=== PATIENT | female | born 1985 | race Caucasian/White ===

== ENCOUNTER 2023-04-18 19:25 | Emergency (ER) | payer BC, SELFPAY ==
[2023-04-18 19:41] VITALS: BP 149/92; PULSE 59; RESP 18; TEMP 36.1; O2SAT 96; BMI 42.9
--- NOTE | 2023-04-18 19:45 | ED_ITS ---
HPI - General Adult General Chief complaint: Wound/Laceration Stated complaint: left foot laceration Time Seen by Provider: 04/18/23 20:07 Source: patient Mode of arrival: ambulatory Limitations: no limitations History of Present Illness HPI narrative: Patient is a 37 year old female with no significant past medical history who presents with a laceration on the ball of her left foot after cutting it on a tile in her bathroom. She reports that this occurred about an hour ago. She reports that she is up to date on her tetanus vaccine and is not on any bloodthinners at home. She denies numbness, tingling, radiation of pain, chest pain, shortness of breath, fevers, chills, FB sensation to foot. Related Data Allergies Allergy/AdvReac Type Severity Reaction Status Date / Time mupirocin [From Bactroban] Allergy Rash Verified 04/18/23 19:41 Review of Systems Review of Systems: Constitutional : No Weight loss, No Fever, No Chills, No Fatigue, No Malaise Cardiovascular : No Chest Pain, No SOB, No Dyspnea on Exertion, No Orthopnea, No Edema, No Palpitations Respiratory : No Cough, No Sputum, No Wheezing Gastrointestinal : No Nausea, No Vomiting, No Diarrhea, No Constipation, No abdominal Pain, No Hematochezia, No Melena Genitourinary : No Dysuria, No Urinary Frequency, No Hematuria, Musculoskeletal : No joint pain, No Myalgias, No Joint Swelling Skin : + laceration to ball of left foot. No rash Neuro : No Weakness, No Numbness, No Dizziness, No Headache Psych : No Anxiety/Panic, No Depression Heme/Lymph: No Bruising, + Bleeding from laceration,No Lymphadenopathy All other systems reviewed and are negative Yes all other systems are reviewed and are negative [facility], [facility] Past Medical History Attestation statement: The following information was validated with the patient. Source: old records reviewed and nursing notes reviewed Social History Social History Advance Directives: No Advance Directives Information Provided: Yes Physical Exam ED Vital Signs: Vital Signs - 24 hr 04/18/23 19:41 Temperature 96.9 F Pulse Rate 59 Respiratory Rate 18 Blood Pressure 149/92 H Pulse Oximetry 96 Oxygen Delivery Method Room Air BMI result Body Mass Index 42.9 vss Appearance: Alert.? Oriented X3.? No acute distress.? Head: Normocephalic, atraumatic, no step-offs or deformities Eyes: Pupils equal, round and reactive to light.?.? CVS: Normal heart rate and rhythm.? Pulses normal.? Respiratory: No respiratory distress.? Breath sounds normal.? Abdomen: Soft and nontender.? Skin: Skin warm and dry.? Normal skin color.? Normal skin turgor.? Extremities: + Positive for 2.5 cm linear simple laceration to ball of left foot near great toe. No lower extremity edema.? No calf ttp. 5/5 strength to bilateral upper and lower extremities Neuro: Oriented X 3.? No motor deficit.? No sensory deficit. CN 2-12 intact Course Course Course Narrative: Patient sustained a laceration to the medial aspect of the left foot on a bathroom tile. Bleeding controlled in triage. Will likely require closure Reevaluation(s) Reevaluation #1: Wound assessed and cleansed with saline and soaked in betadine. Glue used to close laceration and 3 steri-strips placed. Patient tolerated procedure well. Educated patient on diagnosis and treatment plan, answered all question, patient verbalizes understanding. At this time patient will be discharged home, advised to return with new or worsening symptoms. Educated on worrisome signs and symptoms and when to return. At this time I feel comfortable discharge home. Time: 20:49 Medical Decision Making Medical Decision Making MDM Narrative: Patient is a 37 year old female presenting for laceration to the ball of her left foot after cutting it on a tile in her bathroom. Physical exam significant for linear laceration to ball of left foot. Differential diagnosis includes superficial foot laceration. Unlikely neurovascular compromise, foreign bodies, threat to limb. Unlikely fracture dislocation Plan glue and steri-strips. Differential Diagnosis Differential Diagnoses: The differential diagnosis associated with the presentation includes Differential diagnosis includes superficial foot laceration. Unlikely n eurovascular compromise, foreign bodies, threat to limb. Unlikely fracture dislocation Admission/Observation Consideration of admission/observation: Escalation of care including admission/observation considered Unlikely External Record Review External record reviewed: Inpatient record, Office record, Outpatient record, Prior outpatient labs, Prior outpatient radiology, Primary care record and Outside ED record Core Measures AMI core measures followed: Yes Measure exclusions: not indicated Discharge Plan Discharge Clinical Impression: Laceration Patient Disposition: Home, Self-Care Additional Instructions: Take your medications as prescribed. If you were prescribed antibiotics today, it is important that you take your medication to their entirety, do not skip any doses, do not finish them early. Follow-up with your primary care provider this week. Return to the emergency department with new or worsening symptoms. Such as fevers, chills, chest pain, shortness of breath, nausea, vomiting, dizziness, headache, vision changes, lethargy In case of emergency call 911 Referrals: Houston Ye III, MD [Primary Care Provider] - 2 days Stand Alone Forms: Work/School Release Interventions: ED Discharge Assessment Last Done: 04/18/23 20:43 Discharge Date/Time: 04/18/23 20:43
== END 2023-04-18 20:43 | disposition home or self-care (01) ==
PROVIDERS: Emergency Provider Student in an Organized Health Care Education/Training Program; PCP Internal Medicine
DX: S91.312A Laceration without foreign body, left foot, initial encounter (principal); W26.8XXA Contact with other sharp object(s), not elsewhere classified, initial encounter; Y93.89 Activity, other specified; Y92.031 Bathroom in apartment as the place of occurrence of the external cause; Y99.9 Unspecified external cause status
CPT/HCPCS: 12001; 99282

== ENCOUNTER 2025-03-06 09:03 | Outpatient (REF) | payer BC, SELFPAY ==
--- NOTE | ~2025-03-06 | XR_ITS ---
EXAMINATION: XR KNEE, LEFT CLINICAL INFORMATION: M25.569 - Pain in unspecified knee COMPARISON: None available. TECHNIQUE: AP view bilateral knees standing, lateral and patellofemoral views left knee. FINDINGS: RIGHT KNEE: No fracture, or malalignment. No bone lesion. Preserved joint spaces. Normal soft tissues. LEFT KNEE: Lucency through the inferior pole of the left patella, highly suspicious for fracture. This is only seen on the lateral projection. No additional fracture, dislocation, or suspicious bone lesion. Joint spaces are preserved. Normal knee and patellar alignment. There is prepatellar soft tissue swelling. XR/XR knee LT 3V IMPRESSION: 1. Suspect nondisplaced fracture inferior pole left patella. Electronically signed by: Roger Garzon MD 03/09/2025 02:20 PM EDT
--- OUTSIDE RECORDS SUMMARY | 2025-03-06 09:14 | XMS_ITS | Clinical Summary ---
Author Organization [facility] [address] [place] [address] [place] [id number] Phone Care Team Providers Care Certified Master Safe Technician Name Role Phone Houston Ye MD Primary Care Provider [phone] Allergies Active Allergy Reactions Criticality Noted Date Comments Mupirocin Calcium Itching 05/10/2008 Medications copper (PARAGARD) 380 square mm IUD 1 Device by Intrauterine route Once. 2 Active fluocinonide (LIDEX) 0.05 % ointment Apply to are bid 1 Active hydrocortisone 2.5 % cream Apply sparingly twice a day as needed to affected areas on sensitive skin 1 Active Active Problems Problem Noted Date Diagnosed Date Gestational hypertension 11/07/2021 Severe obesity (BMI 35.0-39. 9) with comorbidity ([facility] V24, [facility] V28) 06/28/2019 Heavy menses due to IUD ([facility] V24) 11/21/2012 Asthma, exercise induced 03/08/2010 Eczema 03/08/2010 ADHD (attention deficit hyperactivity disorder) 11/10/2009 Overview (10/24/2024): Diagnosed june 2009 Immunizations Name Administration Dates Next Due DTP 02/24/1987, 6,01/24/1986,1984 [id number] (Pentacel) 2mo to less than 5yo 09/26/1987 HPV, Quadrivalent 11/20/2012,07/25/2012,05/28/20 12 Hepatitis B Pediatric (Enger ix B; Recombivax HB) to less than 20 yo 10/27/1997,06/08/1997,05/07/1997 Influenza Quadravalent, MDCK , 0.5ml, preservative free (Flucelvax) 6mo and older 09/22/2022 Influenza trivalent, 0.5mL, preservative free (Fluarix; FluLaval; Fluzone) ages 6mo and older (Afluria) 3 years and older 08/12/2021,08/05/2020,09/13/2019 Influenza, Unspecified 07/28/2023,08/29/2022 MMR, measles mumps and rubel la Live (Priorix; M-M-R II) 12mo and older 10/27/1997,12/27/1986 Moderna (age 6mo & older) Bi valent, COVID-19, 0.5 mL or 0.25 mL dosage 09/22/2022 OPV 02/24/1987, 6,01/24/1986,1984 PPD Test 07/07/2005 Skills[employer]k SARS-CoV-2 COVID-19, mRNA, LNP-S, preservative free 03/05/2021 SARS-COV-2 (COVID-19) Vaccin e, Unspecified 08/17/2023 Td Tetanus diptheria (Tdvax) 7yo and older 04/14/1999,07/27/1992 Tdap Tetanus diptheria acell ular pertussis (Boostrix; Adacel) 7yo and older 08/24/2021,07/29/2021,05/28/2012,1998,07/27/1992 Surgical History Surgery Date Site/Laterality Comments EYE SURGERY 1989 PROCEDURE: HISTORICAL EYE SURGERY; COMMENT: cross-eyed correction WISDOM TOOTH EXTRACTION PROCEDURE: HISTORICAL WISDOM TEETH EXTRACTION Medical History Medical History Date Comments Anxiety disorder in conditio ns classified elsewhere DX:Anxiety disorder in condi tions classified elsewhere Asthma, exercise induced 03/08/2010 DX:Asth ma, exercise induced Eczema 03/08/2010 DX:Eczema IUD (intrauterine device) in place 11/27/2011 DX:IUD (intrauterine device) in place; COMMENT: ParaGard Gestational hypertension 11/07/2021 DX:Gest ational hypertension Family History Medical History Relation Name Comments Stomach cancer Aunt 1 maternal type I diabet es Breast cancer Aunt 2 paternal unilateral Diabetes Brother x 1 type I Hypertension Father Stroke Maternal Grandfather Hypertension Maternal Grandmother Hypertension Mother vertigo, GI ulc ers Hypertension Paternal Grandfather catarac ts Diabetes Sister x 1 Relation Name Status Comments Aunt 1 maternal Aunt 2 paternal Alive Brother x 1 Alive Father Alive Maternal Grandfather Maternal Grandmother Alive Mother Alive Paternal Grandfather Alive Paternal Grandmother Alive Sister x 1 Alive Social History Tobacco Use Types Packs/Day Years Used Date Smoking Tobacco: Former Cigarettes Q uit: 01/13/2015 Smokeless Tobacco: Never Tobacco Cessation:Counseling Given: Not Answered Alcohol Use Standard Drinks/Week Comments Yes 0 (1 standard drink = 0.6 oz pur e alcohol) Housing Instability Answer Date Recorde d Are you worried that in the next 2 months you may not have stable housing? No 02/13/2025 Food Access & Nutrition Answer Date Rec orded Do you have access to a vari ety of food including fruits and vegetables? Yes 02/13/2025 Access to Healthcare Answer Date Record ed Within the last 3 months, ho w many times did you visit the emergency department for your medical care? 0 02/13/2025 Health Literacy Answer Date Recorded How often do you need to hav e someone help you when you read instructions, pamphlets, or other written material from your doctor or pharmacy? Never 02/13/2025 Caregiver: How often do you need to have someone help you when you read instructions, pamphlets, or other written material from your doctor or pharmacy? Not on file 02/13/2025 Financial Risk Answer Date Recorded How hard is it for you to pa y for the very basics like food, housing, medical care, and air conditioning / heating? Not very hard 02/13/2025 Transportation Answer Date Recorded Has the lack of transportati on kept you from meetings, work, or from getting things needed for daily living? No Has the lack of transportati on kept you from medical appointments or from getting medications? No 02/13/2025 Social Isolation Answer Date Recorded How often do you feel lonely or isolated from th ose around you? Never 02/13/2025 Food Risk Answer Date Recorded Within the past 12 months we worried whether our food would run out before we got money to buy more. Never true 02/13/2025 Within the past 12 months th e food we bought just didn't last and we didn't have money to get more. Never true 02/13/2025 Dependent Care Answer Date Recorded Do you need help finding or paying for care for your loved ones. For example, early childhood associate teacher or elderly care for an older adult? No 02/13/2025 Education Answer Date Recorded Do you think completing more education or training, like finishing a GED, going to college, or learning a trade, would be helpful for you? N/A 02/13/2025 Employment and Income Answer Date Recor ded During the last four weeks, have you been actively looking for work? No 02/13/2025 Living Situation Answer Date Recorded What is your living situation? 0 02/13/2025 Comments Unknown Sex and Gender Information Value Date Recorded Sex Assigned at Not on file Legal Sex Female 8:50 AM EST Gender Identity Not on file Sexual Orientation Not on file Obstetrics History Last Filed Vital Signs Vital Sign Reading Time Taken Comments Blood Pressure 124/78 02/20/2025 9:02 AM EDT Pulse 64 02/20/2025 9:02 AM EDT Temperature 36.9 ??C (98.4 ??F) 02/20/2025 9:02 AM ED T Respiratory Rate - - Oxygen Saturation 98% 02/20/2025 9:02 AM EDT Inhaled Oxygen Concentration - - Weight 100 kg (220 lb 14.4 oz) 02/20/2025 9:02 A M EDT Height 162.6 cm (5' 4.02 ) 02/20/2025 9:02 AM ED T Body Mass Index 37.9 02/20/2025 9:02 AM EDT Plan of Treatment Upcoming Encounters Date Type Department Care Team (Late st Contact Info) Description 03/13/2025 11:30 AM EDT Office Visit Adult Medicine [address] [phone] Felicia Muse PA [address] [place] [id number] Health Maintenance Due Date Last Done Comments Pneumococcal Vaccine: Pediatrics (0 to 5 Years) and At-Risk Patients (6 to 64 Years) (1 of 2 - PCV) 2004 Hepatitis C Screening 10/15/2022 Hypertension/CHF/CAD Annual BMP Blood Test 03/04/2025 03/04/2024 Depression Screening 02/13/2026 02/13/2025 Social Influencers of Health Screening 02/13/2026 02/13/2025 Cervical Cancer Screening: Pap Smear 09/17/2026 09/17/2023 Cholesterol Screening (Lipid Panel) 03/04/2029 03/04/2024 DTaP,Tdap,and Td Vaccines (11 - Td or Tdap) 08/24/2031 08/24/2021, 07/29/2021, 05/28/2012, Additional history exists HIB Vaccines Completed 09/26/1987, 09/26/1987 IPV Vaccines Completed 09/26/1987, 02/10, 03/26/1986, Additional history exists Hepatitis B Vaccines Completed 10/27/1997, 06/08/1997, 05/07/1997 MMR Vaccines Completed 10/27/1997, 12/27/1986 HPV Vaccines Completed 11/20/2012, 07/13, 05/28/2012 HIV Screening Completed 11/25/2014 COVID-19 Vaccine Completed 08/15/2024, 04/2023, 09/22/2022, Additional history exists Influenza Vaccine Completed 08/15/2024, , 09/22/2022, Additional history exists Hepatitis A Vaccines Aged Out No long er eligible based on patient's age to complete this topic Meningococcal ACWY Vaccine Aged Out N o longer eligible based on patient's age to complete this topic Meningococcal B Vaccine Aged Out No l onger eligible based on patient's age to complete this topic RSV Immunization Patients Under 20 months Aged Out No longer eligible based on patient's age to complete this topic Varicella Vaccines Aged Out No longer eligible based on patient's age to complete this topic Procedures Procedure Name Priority Date/Time Associated Diagnosis Comments ANNUAL BMP BLOOD TEST Routine 03/04/2024 LIPID PANEL Routine 03/04/2024 HM PAP SMEAR Routine 09/17/2023 HIV SCREENING Routine 11/25/2014 from Last 3 Months or Most Recently Relevant to Health Maintenance Results * Annual BMP Blood Test (03/04/2024) Pathologist [facility] Annual BMP Blood Test abstracted [facility] Provider HEALTH MAINTENANCE Final Result * Lipid panel (03/04/2024) [facility] LDL/HDL Ratio 3 0 - 4 Triglycerides 58 0 - 150 mg/dL Cholesterol 155 0 - 200 mg/dL HDL 57 >=40 mg/dL LDL Cholesterol 87 0 - 100 mg/dL Blood Venous blood specimen / Unknown [facility] Provider LAB BLOOD ORDERABLES Radha l Result * Pap Smear (09/17/2023) Pathologist [facility] Pap smear no interpretation , abstracted [facility] Provider HEALTH MAINTENANCE Final Result * HIV Screening (11/25/2014) [facility] HIV Screening abstracted [facility] Provider HEALTH MAINTENANCE Final Result from Last 3 Months or Most Recently Relevant to Health Maintenance Insurance [facility] Care Teams Certified Master Safe Technician Relationship Specialty Start Date End Date Houston Ye MD [address] [place] [phone] PCP - General Internal Medicine 06/29/14
== END 2025-03-06 09:04 | disposition home or self-care (01) ==
LOC: HO.HOSX 09:03
PROVIDERS: Visit Provider Physician Assistant
DX: M25.562 Pain in left knee (principal)
CPT/HCPCS: 73562

== ENCOUNTER 2025-03-06 10:34 | Outpatient (AMB) | payer BC, SELFPAY ==
--- NOTE | 2025-03-06 10:41 | A.OFFVIS_ITS ---
Vital Signs 03/06/25 10:50 Height 5 ft 4 in Weight 215 lb BMI 36.9 Handedness Right Intake Visit Reasons: FC-Left inferior knee FX-LAC. Intake Note: Yvette is a 39 year old female who presents today with a knee immobilizer and crutches for a evaluation of her left knee injury, DOI 02/24/25. Patient reports she was walking on her lunch while she was at work and she had a fall and she is unsure if she was feeling dizzy at the moment. She states that her pain is through out the whole knee. She mentions that she has muscle tightness in her l eg. Patient has tried Motrin and Tylenol with relief. Allergies mupirocin [From Bactroban] Allergy (Verified 03/06/25 10:43) Rash HPI HPI FC-Left inferior knee FX-LAC.: Details: Ms. Olvera is a 39-year-old female who presents to the office today for evaluation of a left knee injury that she sustained on 02-24-25. She reports that she was on her lunch break walking with coworkers when all of a sudden she fell. She is unsure what caused the fall however after she had extreme left knee pain. [facility] and she was found to have a patellar fracture. She was placed in a knee immobilizer instructed to non weightbear until her appointment with orthopedics. 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 Tenderness to palpation of the distal pole of the patella. No tenderness to palpation medial or lateral joint lines. NVI. Office Procedures AMB Fracture Care Fracture Billing Code: Fracture Billing Code Assessment & Plan Assessment & Plan (1) Closed fracture of left patella: Code(s): S82.002A - Unspecified fracture of left patella, initial encounter for closed fracture Category: Medical Plan Ms. Olvera is a 39-year-old female who presents to the office today for evaluation of a left knee injury that she sustained on 02-24-25. She reports that she was on her lunch break walking with coworkers when all of a sudden she fell. She is unsure what caused the fall however after she had extreme left knee pain. [facility] were obtained and she was found to have a patellar fracture. She was placed in a knee immobilizer instructed to non weightbear until her appointment with orthopedics. On the office today, the patient was fit for an ACL brace off the shelf. She will ambulate in this brace locked in extension. She may weight bear as tolerated with the brace on at all times. I would like her to use crutches to assist with ambulation and balance. I did educate the patient on the importance of not bending the knee during this time and the risk of further displacement of the fracture which may require surgical intervention. Patient demonstrates understanding. I would like to see her back in 4 weeks with repeat x-rays, sooner if needed. X-rays of the left knee which were obtained while in the office today and were reviewed by me, Karen Lorenz PA-C, revealed a fracture at the distal pole of the patella. Orders: Orders XR knee LT 3V Today M25.569 - Pain in unspecified knee Coding Level of Care Code New Pt Level 4 (90560) Diagnoses Closed fracture of left patella S82.002A CPT Codes Fracture Care - Fracture Billing Code: Fracture Billing Code ([id number])
[2025-03-06 10:50] VITALS: BMI 36.9
== END 2025-03-06 11:22 | disposition home or self-care (01) ==
LOC: HO.HOS 10:34
PROVIDERS: PCP Internal Medicine; Visit Provider Physician Assistant
DX: S82.002A Unspecified fracture of left patella, initial encounter for closed fracture (principal)
CPT/HCPCS: 99203

== ENCOUNTER → 2025-03-06 10:36 | Outpatient (BNV) | payer BC, SELFPAY | PROVIDERS: Visit Provider Radiology Diagnostic Radiology | DX: M25.562 Pain in left knee (principal) | CPT/HCPCS: 73562 ==

== ENCOUNTER 2025-04-03 08:17 | Outpatient (REF) | payer BC, SELFPAY ==
--- NOTE | ~2025-04-03 | XR_ITS ---
CLINICAL HISTORY: M25.569 - Pain in unspecified knee 3 view left knee Comparison: 03/06/2025 Findings: No fractures or dislocations. No significant loss of joint space, osteophytes, or erosions. No joint effusion. No radiopaque foreign body. IMPRESSION: 1. No acute findings. This document has been electronically signed by: Brent Carvalho MD on 04/04/2025 08:43:41
--- OUTSIDE RECORDS SUMMARY | 2025-04-07 08:22 | XMS_ITS | Clinical Summary ---
Author Organization [facility] [address] [place] [address] [place] [phone] Phone Care Team Providers Care Open Hearth Helper Name Role Phone Houston Ye MD Primary Care Provider [phone] Allergies Active Allergy Reactions Criticality Noted Date [...] Severe obesity (BMI 35.0-39. 9) with comorbidity ([facility] V24, [facility] V28) 06/28/2019 Heavy menses due to IUD ([facility] V24) 11/21/2012 Asthma, exercise induced 03/08/2010 Eczema 03/08/2010 ADHD (attention deficit hyperactivity disorder) 11/10/2009 Overview (10/24/2024): Diagnosed june 2009 Encounters Date Type Department Care Team Description 03/06/2025 Telephone Adult Medicine [facility] [address] [place] [phone] Michelle Valles MA Referral (Franck Cano) from Last 3 Months Immunizations Name Administration Dates Next Due DTP 02/24/1987, 6,01/24/1986,1984 [id number] (Pentacel) 2mo to less than 5yo 09/26/1987 [...] 09/22/2022 OPV 02/24/1987, 6,01/24/1986,1984 PPD Test 07/07/2005 [facility] SARS-CoV-2 COVID-19, mRNA, LNP-S, preservative free 03/05/2021 [...] you may not have stable housing? No 03/06/2025 Food Access & Nutrition Answer Date Rec orded Do you have access to a vari ety of food including fruits and vegetables? Yes 03/06/2025 Access to Healthcare Answer Date Record ed Within the last 3 months, ho w many times did you visit the emergency department for your medical care? 0 03/06/2025 Health Literacy Answer Date Recorded How often do you need to hav e someone help you when you read instructions, pamphlets, or other written material from your doctor or pharmacy? Never 03/06/2025 Caregiver: How often do you need to have someone help you when you read instructions, pamphlets, or other written material from your doctor or pharmacy? Not on file 03/06/2025 Financial Risk Answer Date Recorded How hard is it for you to pa y for the very basics like food, housing, medical care, and air conditioning / heating? Not very hard 03/06/2025 Transportation Answer Date Recorded Has the lack of transportati on kept you from meetings, work, or from getting things needed for daily living? No Has the lack of transportati on kept you from medical appointments or from getting medications? No 03/06/2025 Social Isolation Answer Date Recorded How often do you feel lonely or isolated from th ose around you? Never 03/06/2025 Food Risk Answer Date Recorded Within the past 12 months we worried whether our food would run out before we got money to buy more. Never true 03/06/2025 Within the past 12 months th e food we bought just didn't last and we didn't have money to get more. Never true 03/06/2025 Dependent Care Answer Date Recorded Do you need help finding or paying for care for your loved ones. For example, child care leader or elderly care for an older adult? No 03/06/2025 Education Answer Date Recorded Do you think completing more education or training, like finishing a GED, going to college, or learning a trade, would be helpful for you? N/A 03/06/2025 Employment and Income Answer Date Recor ded During the last four weeks, have you been actively looking for work? No 03/06/2025 Living Situation Answer Date Recorded What is your living situation? 0 03/06/2025 Comments Unknown Sex and Gender Information Value [...] Care Team (Late st Contact Info) Description 05/06/2025 8:30 AM EDT Office Visit Adult Medicine [address] [place] [address] Felicia Muse PA [address] [place] [address] Health Maintenance Due Date Last Done Comments Pneumococcal Vaccine: Pediatrics (0 to 5 Years) and At-Risk Patients (6 to 64 Years) (1 of 2 - PCV) 2004 Hepatitis C Screening 10/15/2022 Hypertension/CHF/CAD Annual BMP Blood Test 03/04/2025 03/04/2024 Depression Screening 03/06/2026 03/06/2025 Social Influencers of Health Screening 03/06/2026 03/06/2025 Cervical Cancer Screening: Pap Smear 09/17/2026 09/17/2023 [...] TEST Routine 03/04/2024 LIPID PANEL Routine 03/04/2024 PAP SMEAR Routine 09/17/2023 HIV SCREENING Routine 11/25/2014 from Last 3 Months or Most Recently Relevant to Health Maintenance Results * Annual BMP Blood Test (03/04/2024) Pathologist [facility] Annual BMP Blood Test abstracted [facility] Provider HEALTH MAINTENANCE Final Result * Lipid panel (03/04/2024) [facility] LDL/HDL Ratio 3 0 - 4 Triglycerides 58 0 - 150 mg/dL Cholesterol 155 0 - 200 mg/dL HDL 57 >=40 mg/dL LDL Cholesterol 87 0 - 100 mg/dL Blood Venous blood specimen / Unknown [facility] Provider LAB BLOOD ORDERABLES Radha l Result * Pap Smear (09/17/2023) Pathologist [facility] Pap smear no interpretation , abstracted [facility] Provider HEALTH MAINTENANCE Final Result * HIV Screening (11/25/2014) [facility] HIV Screening abstracted [facility] Provider HEALTH MAINTENANCE Final Result from Last 3 Months or Most Recently Relevant to Health Maintenance Insurance [facility] Care Teams Open Hearth Helper Relationship Specialty Start Date End Date Houston Ye MD [address] [place] [id number] PCP - General Internal Medicine 06/29/14
== END 2025-04-03 08:18 | disposition home or self-care (01) ==
LOC: HO.HOSX 08:17
PROVIDERS: Visit Provider Physician Assistant
DX: M25.562 Pain in left knee (principal); S82.002A Unspecified fracture of left patella, initial encounter for closed fracture
CPT/HCPCS: 73562; 99212

== ENCOUNTER 2025-04-03 11:31 | Outpatient (AMB) | payer OTHER, SELFPAY ==
--- NOTE | 2025-04-03 11:45 | A.OFFVIS_ITS ---
Vital Signs 04/03/25 11:53 Height 5 ft 4 in Weight 215 lb BMI 36.9 Intake Visit Reasons: OV - left patella fx, DOI 02/24/25 Intake Note: Yvette is a 39 year old female who presents today for a evaluation of her left patella fx, DOI 02/24/25. At her last visit she was informed to not bend her knee and to weight bear as tolerated and use crutches for support and balance. Patient reports having little to no pain at the moment. She is still wearing her ACL brace and using her crutch. Patient notices pain when she is standing for a long time. Allergies mupirocin [From Bactroban] Allergy (Verified 04/03/25 11:52) Rash HPI HPI OV - left patella fx, DOI 02/24/25: Details: Ms. Olvera is a 39-year-old female who presents to the office today for routine follow up of a left patellar fracture that she sustained on 02/24/2025. At her last appointment on 03/06/2025 she was placed into an ACL brace locked in extension. She has been compliant with these recommendations and reports that she is experiencing minimal pain. 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 Range of motion is very minimal 0-20 degrees. Able to dorsiflex and plantar flex. NVI Assessment & Plan Assessment & Plan (1) Closed fracture of left patella: Code(s): S82.002A - Unspecified fracture of left patella, initial encounter for closed fracture Category: Medical Plan Ms. Olvera is a 39-year-old female who presents to the office today for routine follow up of a left patellar fracture that she sustained on 02/24/2025. At her last appointment on 03/06/2025 she was placed into an ACL brace locked in extension. She has been compliant with these recommendations and reports that she is experiencing minimal pain. While the office today, we discussed physical therapy to work on gentle range of motion. She will continue with the ACL brace and the goal is to unlock the brace by 20 degrees each week with physical therapy until fully unlocked. She will continue the same work restrictions. I did educate the patient that she should not push through pain. Should she have a drastic increase in pain she will contact our office immediately or present to the emergency department. She will follow up in 6 weeks with repeat x-rays, sooner if needed. Orders: Orders XR knee LT 3V Today M25.569 - Pain in unspecified knee Coding Level of Care Code Global (97088) Diagnoses Closed fracture of left patella S82.002A
[2025-04-03 11:53] VITALS: BMI 36.9
== END 2025-04-03 12:08 | disposition home or self-care (01) ==
LOC: HO.HOS 11:32
PROVIDERS: PCP Internal Medicine; Visit Provider Physician Assistant
DX: S82.002A Unspecified fracture of left patella, initial encounter for closed fracture (principal)
CPT/HCPCS: 99213

== ENCOUNTER → 2025-04-03 11:33 | Outpatient (BNV) | payer BC, SELFPAY | PROVIDERS: Visit Provider Specialist | DX: M25.562 Pain in left knee (principal) | CPT/HCPCS: 73562 ==

== ENCOUNTER 2025-05-21 09:16 | Outpatient (REF) | payer OTHER, BC, SELFPAY ==
--- NOTE | ~2025-05-21 | XR_ITS ---
CLINICAL HISTORY: M25.569 - Pain in unspecified knee --- Additional Notes or Special Instructions: AP and lateral Standing AP view of both knees with 1 additional view of the left knee. Comparison: None provided Findings: No fractures or dislocations. 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 The medial and lateral compartments are unremarkable. No joint effusion. No radiopaque foreign body. 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 This document has been electronically signed by: Juan Ventura MD on 05/27/2025 11:24:52
--- OUTSIDE RECORDS SUMMARY | 2025-05-22 09:32 | XMS_ITS | Clinical Summary ---
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 9) with comorbidity ([facility] V24, [facility] V28) 06/28/2019 Heavy menses due to IUD ([facility] V24) 11/21/2012 Asthma, exercise induced 03/08/2010 Eczema 03/08/2010 ADHD (attention deficit hyperactivity disorder) 11/10/2009 Overview (10/24/2024): Diagnosed june 2009 Encounters Date Type Department Care Team Description 05/06/2025 8:30 AM EDT Office Visit Adult Medicine [address] [phone] Felicia Muse PA Routine history and physical examination of adult (Primary Dx); Eczema, unspecified type 03/06/2025 Telephone Adult Medicine [facility] [address] [place] [address] Michelle Valles MA Referral (Franck Cano) from Last 3 Months Immunizations Name Administration Dates Next Due DTP 02/24/1987, 6,01/24/1986,1984 [id number] (Pentacel) 2mo to less than 5yo 09/26/1987 [...] 09/22/2022 OPV 02/24/1987, 6,01/24/1986,1984 PPD Test 07/07/2005 Figure 8 Surgical SARS-CoV-2 COVID-19, mRNA, LNP-S, preservative free 03/05/2021 [...] your loved ones. For example, child care center administrator or elderly care for an older adult? [...] Industry Job Start Date Job End Date [employer] Not on file Not o n file Not on file Travel History Travel Start Travel End [place] 05/02/2025 05/05/2025 Obstetrics History Last Filed Vital [...] 9:00 AM EDT Office Visit Adult Medicine [facility] [address] [place] [address] Houston Ye MD [address] [place] [phone] Health Maintenance Due Date Last Done Comments [...] LAB CHEMISTRY METHOD 05/08/2025 1:00 PM EDT [facility] Triglycerides 56 0 - 150 mg/dL LAB CHEMISTRY METHOD 05/08/2025 1:00 PM EDT [facility] HDL 62 >=40 mg/dL LAB CHEMISTRY METHOD 05/08/2025 1:00 PM EDT [facility] LDL Calculated 82 0 - 100 mg/dL LAB CHEMISTRY METHOD 05/08/2025 1:00 PM [facility] VLDL Cholesterol Andrea 11.2 mg/dL LAB CHEMISTRY METHOD 05/08/2025 1:00 PM T [facility] Non HDL Chol. (LDL+VLDL) 93 <145 mg/dL [facility] Chol/HDL Ratio 2.5 0.0 - 4.4 LAB CHEMISTRY METHOD 05/08/2025 1:00 PM [facility] Blood Venous blood specimen / Unknown Venipuncture / Unknown 05/08/2025 9:18 AM EDT 05/08/2025 9:18 AM EDT Felicia ESQUIVEL LAB BLOOD ORDERABLES Fi nal Result [facility] [address] [place] [address], * Complete blood count (05/08/2025 9:18 AM EDT) WBC 7.0 4.8 - 10.8 K/mcL LAB HEMETOLOGY METHOD 05/08/2025 11:58 AM [facility] RBC 4.60 3.80 - 4.80 M/[facility] LAB HEMETOLOGY METHOD 05/08/2025 11:58 AM [facility] Hemoglobin 13.4 11.5 - 16.0 g/dL LAB HEMETOLOGY METHOD 05/08/2025 11:58 AM T [facility] Hematocrit 41.8 35.0 - 47.0 % LAB HEMETOLOGY METHOD 05/08/2025 11:58 AM [facility] MCV 90.5 79.0 - 98.0 FL LAB HEMETOLOGY METHOD 05/08/2025 11:58 AM [facility] MCH 29.0 27.0 - 32.0 pcg LAB HEMETOLOGY METHOD 05/08/2025 11:58 AM [facility] MCHC 32.1 32.0 - 37.0 g/dL LAB HEMETOLOGY METHOD 05/08/2025 11:58 AM EDT [facility] RDW 13.1 11.0 - 15.0 % LAB HEMETOLOGY METHOD 05/08/2025 11:58 AM EDT [facility] Platelets 256 130 - 400 K/mcL LAB HEMETOLOGY METHOD 05/08/2025 11:58 AM EDT [facility] MPV 10.4 7.0 - 11.0 FL LAB HEMETOLOGY METHOD 05/08/2025 11:58 AM EDT [facility] NRBC 0.0 <1.0 % LAB HEMETOLOGY METHOD 05/08/2025 11:58 AM EDT [facility] NRBC Absolute 0.00 <0.10 K/mcL LAB HEMETOLOGY METHOD 05/08/2025 11:58 AM EDT [facility] Blood Venous blood specimen / Unknown Venipuncture / Unknown 05/08/2025 9:18 AM EDT 05/08/2025 9:18 AM EDT Felicia ESQUIVEL LAB BLOOD ORDERABLES Fi nal Result [facility] [address] [place] [address], * Basic metabolic panel (05/08/2025 9:18 AM EDT) Sodium 141 133 - 145 mmol/L LAB CHEMISTRY METHOD 05/08/2025 1:00 PM EDT [facility] Potassium 4.6 3.5 - 5.5 mmol/L LAB CHEMISTRY METHOD 05/08/2025 1:00 PM EDT [facility] Chloride 109 96 - 110 mmol/L LAB CHEMISTRY METHOD 05/08/2025 1:00 PM EDT [facility] CO2 25 21 - 32 mmol/L LAB CHEMISTRY METHOD [facility] Anion Gap 7 3 - 11 LAB CHEMISTRY METHOD 05/08/2025 1:00 PM [facility] Glucose 94 70 - 100 mg/dL LAB CHEMISTRY METHOD 05/08/2025 1:00 PM [facility] BUN 15 5 - 25 mg/dL LAB CHEMISTRY METHOD 05/08/2025 1:00 PM [facility] Creatinine 1.00 0.50 - 1.10 mg/dL LAB CHEMISTRY METHOD 05/08/2025 1:00 PM [facility] eGFR 74 >=60 mL/min/1. 73m2 LAB CHEMISTRY METHOD 05/08/2025 1:00 PM [facility] Comment:Calculation based on the Chronic Kidney Disease Epidemiology Collaboration (CKD-EPI) equation refit without adjustment for race. BUN/Creatinine Ratio 15.0 LAB CHEMISTRY METHOD 05/08/2025 1:00 PM [facility] Calcium 9.0 8.5 - 10.5 mg/dL LAB CHEMISTRY METHOD 05/08/2025 1:00 PM [facility] Blood Venous blood specimen / Unknown Venipuncture / Unknown 05/08/2025 9:18 AM EDT 05/08/2025 9:18 AM EDT Felicia ESQUIVEL LAB BLOOD ORDERABLES Fi nal Result [facility] [address] [place] [address], * Pap Smear (09/17/2023) Pap smear no interpretation , abstracted Historical Provider HEALTH MAINTENANCE Final Result * HIV Screening (11/25/2014) HIV Screening abstracted us Historical Provider HEALTH MAINTENANCE Final Result from Last 3 Months or Most Recently Relevant to Health Maintenance Insurance [facility] Care Teams Printed Circuit Board Assembly Repairer Relationship Specialty Start Date End Date Houston Ye MD [address] [place] [address] [phone] PCP - General Internal Medicine 06/29/14
== END 2025-05-21 09:17 | disposition home or self-care (01) ==
LOC: HO.HOSX 09:16
PROVIDERS: Visit Provider Physician Assistant
DX: M25.562 Pain in left knee (principal); S82.002A Unspecified fracture of left patella, initial encounter for closed fracture; X58.XXXA Exposure to other specified factors, initial encounter; Y93.9 Activity, unspecified; Y92.9 Unspecified place or not applicable; Y99.9 Unspecified external cause status
CPT/HCPCS: 73560; 99212

== ENCOUNTER 2025-05-21 11:47 | Outpatient (AMB) | payer OTHER, SELFPAY ==
--- NOTE | 2025-05-21 11:52 | A.OFFVIS_ITS ---
Intake Visit Reasons: OV-left patella fx, DOI 02/24/25-W/XR Intake Note: Yvette is a 39 year old female who presents today for a follow up of her left patella fx, DOI 02/24/25. At her last visit she was advised to continue with the ACL brace and the goal is to unlock the brace by 20 degrees each week with physical therapy until fully unlocked. She mentions she is very sore/stiff from her physical therapy session yesterday. She doing well, she does have some discomfort when she is getting up from a sitting position. Allergies mupirocin (From Bactroban) Allergy (Verified 05/21/25 12:02) Rash HPI HPI OV-left patella fx, DOI 02/24/25-W/XR: Details: Ms. Olvera is a 39-year-old female who presents to the office today for follow- up status post left patellar fracture. Date of injury was 02/24/2025. She has been attending physical therapy and making good progress. She continues to experience some soreness at the patellar and quad tendons. She continues to work with physical therapy. Her current challenges to ambulate stairs without doing 1 leg at a time. 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 Range of motion is very minimal 0-120 degrees. Able to dorsiflex and plantar flex. No tenderness to palpation over the quad or patellar tendons. NVI Assessment & Plan Assessment & Plan (1) Closed fracture of left patella: Code(s): S82.002A - Unspecified fracture of left patella, initial encounter for closed fracture Category: Medical Plan Ms. Olvera is a 39-year-old female who presents to the office today for follow- up status post left patellar fracture. Date of injury was 02/24/2025. She has been attending physical therapy and making good progress. She continues to experience some soreness at the patellar and quad tendons. She continues to work with physical therapy. Her current challenges to ambulate stairs without doing 1 leg at a time. While in the office today, we discussed continuing physical therapy until all sessions have been completed. Should she continue to have any remaining stiffness after her appointment scheduled healing on his month she will contact me and I will place a new physical therapy order. At this point in time the p min is experiencing mild discomfort over the quad and patellar tendons which I think will improve with physical therapy. She will follow up PRN, sooner if needed. X-rays of the left knee which were obtained while in the office today and were reviewed by me, Karen Lorenz PA-C, revealed healed patellar fracture of the distal pole. Orders: Orders XR knee LT 2V Today M25.569 - Pain in unspecified knee Coding Level of Care Code Est Pt Level 3 (02568) Diagnoses Closed fracture of left patella S82.002A
--- OUTSIDE RECORDS SUMMARY | 2025-05-21 12:20 | XMS_ITS | Clinical Summary ---
Author Organization [facility] [address] [place] [address] [place] [address] Phone Care Team Providers Care Supervisor Chlorine Liquefaction Name Role Phone Houston Ye MD Primary Care Provider Allergies Active Allergy Reactions Criticality Noted Date [...] Severe obesity (BMI 35.0-39. 9) with comorbidity ([facility] V24, [facility] V28) 06/28/2019 Heavy menses due to IUD ([facility] V24) 11/21/2012 Asthma, exercise induced 03/08/2010 Eczema 03/08/2010 ADHD (attention deficit hyperactivity disorder) 11/10/2009 Overview (10/24/2024): Diagnosed june 2009 Encounters Date Type Department Care Team Description 05/06/2025 8:30 AM EDT Office Visit Adult Medicine [address] [phone] Felicia Muse PA Routine history and physical examination of adult (Primary Dx); Eczema, unspecified type 03/06/2025 Telephone Adult Medicine [facility] [address] [place] [address] Michelle Valles MA Referral (Franck Cano) from Last 3 Months Immunizations Name Administration Dates Next Due DTP 02/24/1987, 6,01/24/1986,1984 [id number] (Pentacel) 2mo to less than 5yo 09/26/1987 [...] 09/22/2022 OPV 02/24/1987, 6,01/24/1986,1984 PPD Test 07/07/2005 [facility] SARS-CoV-2 COVID-19, mRNA, LNP-S, preservative free 03/05/2021 [...] drink = 0.6 oz pur e alcohol) occasional Housing Instability Answer Date Recorde d Are you worried that in the next 2 months you may not have stable housing? No 05/05/2025 Food Access & Nutrition Answer Date Rec orded Do you have access to a vari ety of food including fruits and vegetables? Yes 05/05/2025 Access to Healthcare Answer Date Record ed Within the last 3 months, ho w many times did you visit the emergency department for your medical care? 0 05/05/2025 Health Literacy Answer Date Recorded How often do you need to hav e someone help you when you read instructions, pamphlets, or other written material from your doctor or pharmacy? Never 05/05/2025 Caregiver: How often do you need to have someone help you when you read instructions, pamphlets, or other written material from your doctor or pharmacy? Not on file 05/05/2025 Financial Risk Answer Date Recorded How hard is it for you to pa y for the very basics like food, housing, medical care, and air conditioning / heating? Not very hard 05/05/2025 Transportation Answer Date Recorded Has the lack of transportati on kept you from meetings, work, or from getting things needed for daily living? No Has the lack of transportati on kept you from medical appointments or from getting medications? No 05/05/2025 Social Isolation Answer Date Recorded How often do you feel lonely or isolated from th ose around you? Never 05/05/2025 Food Risk Answer Date Recorded Within the past 12 months we worried whether our food would run out before we got money to buy more. Never true 05/05/2025 Within the past 12 months th e food we bought just didn't last and we didn't have money to get more. Never true 05/05/2025 Dependent Care Answer Date Recorded Do you need help finding or paying for care for your loved ones. For example, early childhood worker or elderly care for an older adult? No 05/05/2025 Education Answer Date Recorded Do you think completing more education or training, like finishing a GED, going to college, or learning a trade, would be helpful for you? N/A 05/05/2025 Employment and Income Answer Date Recor ded During the last four weeks, have you been actively looking for work? No 05/05/2025 Living Situation Answer Date Recorded What is your living situation? 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 Not o n file Not on file Travel History Travel Start Travel End [place] 05/02/2025 05/05/2025 Obstetrics History Last Filed Vital Signs Vital Sign Reading Time Taken Comments Blood Pressure 118/78 05/06/2025 8:14 AM EDT Pulse 84 05/06/2025 8:14 AM EDT Temperature 36 C (96.8 F) 05/06/2025 8:14 AM EDT Respiratory Rate 16 05/06/2025 8:14 AM EDT Oxygen Saturation 96% 05/06/2025 8:14 AM EDT Inhaled Oxygen Concentration - - Weight 102 kg (223 lb 12.8 oz) 05/06/2025 8:14 A M EDT Height 162.6 cm (5' 4 ) 05/06/2025 8:14 AM EDT Body Mass Index 38.42 05/06/2025 8:14 AM EDT Plan of Treatment Upcoming Encounters Date Type Department Care Team (Late st Contact Info) Description 05/17/2026 9:00 AM EDT Office Visit Adult Medicine [facility] [address] [place] [address] Houston Ye MD [address] [place] [id number] Health Maintenance Due Date Last Done Comments Pneumococcal Vaccine: Pediatrics (0 to 5 Years) and At-Risk Patients (6 to 49 Years) (1 of 2 - PCV) 2004 Hepatitis C Screening 10/15/2022 Influenza Vaccine (#1) 2025 , 07/28/2023, 09/22/2022, Additional history exists Depression Screening 05/05/2026 05/05/2025 Social Influencers of Health Screening 05/05/2026 05/05/2025 Hypertension/CHF/CAD Annual BMP Blood Test 05/08/2026 05/08/2025, 03/04/2024 Cervical Cancer Screening: Pap Smear 09/17/2026 09/17/2023 Cholesterol Screening (Lipid Panel) 05/08/2030 05/08/2025, 03/04/2024 DTaP,Tdap,and Td Vaccines (11 - Td or Tdap) 08/24/2031 08/24/2021, 07/29/2021, 05/28/2012, Additional history exists HIB Vaccines Completed 09/26/1987, 09/26/1987 IPV Vaccines Completed 09/26/1987, 02/10, 03/26/1986, Additional history exists Hepatitis B Vaccines Completed 10/27/1997, 06/08/1997, 05/07/1997 MMR Vaccines Completed 10/27/1997, 12/27/1986 HPV Vaccines Completed 11/20/2012, 07/13, 05/28/2012 HIV Screening Completed 11/25/2014 COVID-19 Vaccine Completed 08/15/2024, 04/2023, 09/22/2022, Additional history exists Hepatitis A Vaccines [...] Procedure Name Priority Date/Time Associated Diagnosis Comments BASIC METABOLIC PANEL Routine 05/08/2025 9:18 AM EDT Routine history and physical examination of adult COMPLETE BLOOD COUNT Routine 05/08/2025 9:18 AM EDT Routine history and physical examination of adult LIPID PANEL WITH REFLEX TO DIRECT LDL Routine 05/08/2025 9:18 AM EDT Routine history and physical examination of adult PAP SMEAR Routine 09/17/2023 HIV SCREENING Routine 11/25/2014 from Last 3 Months or Most Recently Relevant to Health Maintenance Results * Lipid panel with reflex to direct LDL (05/08/2025 9:18 AM EDT) Cholesterol 155 0 - 200 mg/dL LAB CHEMISTRY METHOD 05/08/2025 1:00 PM EDT [facility] Triglycerides 56 0 - 150 mg/dL LAB CHEMISTRY METHOD 05/08/2025 1:00 PM EDT [facility] HDL 62 >=40 mg/dL LAB CHEMISTRY METHOD 05/08/2025 1:00 PM EDT [facility] LDL Calculated 82 0 - 100 mg/dL LAB CHEMISTRY METHOD 05/08/2025 1:00 PM [facility] VLDL Cholesterol Andrea 11.2 mg/dL LAB CHEMISTRY METHOD 05/08/2025 1:00 PM T [facility] Non HDL Chol. (LDL+VLDL) 93 <145 mg/dL LAB CHEMISTRY METHOD [facility]/08[facility]2025 [facility] Chol/HDL Ratio 2.5 0.0 - 4.4 LAB CHEMISTRY METHOD 05/08/2025 1:00 PM [facility] Blood Venous blood specimen / Unknown Venipuncture / Unknown 05/08/2025 9:18 AM EDT 05/08/2025 9:18 AM EDT Felicia ESQUIVEL LAB BLOOD ORDERABLES Fi nal Result [facility] [address] [place] [address], * Complete blood count (05/08/2025 9:18 AM EDT) WBC 7.0 4.8 - 10.8 K/mcL LAB HEMETOLOGY METHOD 05/08/2025 11:58 AM [facility] RBC 4.60 3.80 - 4.80 M/[facility] LAB HEMETOLOGY METHOD 05/08/2025 11:58 AM [facility] Hemoglobin 13.4 11.5 - 16.0 g/dL LAB HEMETOLOGY METHOD 05/08/2025 11:58 AM T [facility] Hematocrit 41.8 35.0 - 47.0 % LAB HEMETOLOGY METHOD 05/08/2025 11:58 AM [facility] MCV 90.5 79.0 - 98.0 FL LAB HEMETOLOGY METHOD 05/08/2025 11:58 AM [facility] MCH 29.0 27.0 - 32.0 pcg LAB HEMETOLOGY METHOD 05/08/2025 11:58 AM [facility] MCHC 32.1 32.0 - 37.0 g/dL LAB HEMETOLOGY METHOD 05/08/2025 11:58 AM EDT [facility] RDW 13.1 11.0 - 15.0 % LAB HEMETOLOGY METHOD 05/08/2025 11:58 AM EDT [facility] Platelets 256 130 - 400 K/mcL LAB HEMETOLOGY METHOD 05/08/2025 11:58 AM EDT [facility] MPV 10.4 7.0 - 11.0 FL LAB HEMETOLOGY METHOD 05/08/2025 11:58 AM EDT [facility] NRBC 0.0 <1.0 % LAB HEMETOLOGY METHOD 05/08/2025 11:58 AM EDT [facility] NRBC Absolute 0.00 <0.10 K/mcL LAB HEMETOLOGY METHOD 05/08/2025 11:58 AM EDT [facility] Blood Venous blood specimen / Unknown Venipuncture / Unknown 05/08/2025 9:18 AM EDT 05/08/2025 9:18 AM EDT Felicia ESQUIVEL LAB BLOOD ORDERABLES Fi nal Result [facility] [address] [place] [address], * Basic metabolic panel (05/08/2025 9:18 AM EDT) Sodium 141 133 - 145 mmol/L LAB CHEMISTRY METHOD 05/08/2025 1:00 PM EDT [facility] Potassium 4.6 3.5 - 5.5 mmol/L LAB CHEMISTRY METHOD 05/08/2025 1:00 PM EDT [facility] Chloride 109 96 - 110 mmol/L LAB CHEMISTRY METHOD 05/08/2025 1:00 PM EDT [facility] CO2 25 21 - 32 mmol/L LAB CHEMISTRY METHOD 05/08/2025 [facility] Anion Gap 7 3 - 11 LAB CHEMISTRY METHOD 05/08/2025 1:00 PM [facility] Glucose 94 70 - 100 mg/dL LAB CHEMISTRY METHOD 05/08/2025 1:00 PM [facility] BUN 15 5 - 25 mg/dL LAB CHEMISTRY METHOD 05/08/2025 1:00 PM [facility] Creatinine 1.00 0.50 - 1.10 mg/dL LAB CHEMISTRY METHOD 05/08/2025 1:00 PM [facility] eGFR 74 >=60 mL/min/1. 73m2 LAB CHEMISTRY METHOD 05/08/2025 1:00 PM [facility] Comment:Calculation based on the Chronic Kidney Disease Epidemiology Collaboration (CKD-EPI) equation refit without adjustment for race. BUN/Creatinine Ratio 15.0 LAB CHEMISTRY METHOD 05/08/2025 1:00 PM [facility] Calcium 9.0 8.5 - 10.5 mg/dL LAB CHEMISTRY METHOD 05/08/2025 1:00 PM [facility] Blood Venous blood specimen / Unknown Venipuncture / Unknown 05/08/2025 9:18 AM EDT 05/08/2025 9:18 AM EDT Felicia ESQUIVEL LAB BLOOD ORDERABLES Fi nal Result [facility] [address] [place] [address], * Pap Smear (09/17/2023) Pap smear no interpretation , abstracted Historical Provider HEALTH MAINTENANCE Final Result * HIV Screening (11/25/2014) HIV Screening abstracted us Historical Provider HEALTH MAINTENANCE Final Result from Last 3 Months or Most Recently Relevant to Health Maintenance Insurance [facility] Care Teams Supervisor Chlorine Liquefaction Relationship Specialty Start Date End Date Houston Ye MD [address] [place] [address] [phone] PCP - General Internal Medicine 06/29/14
== END 2025-05-21 12:22 | disposition home or self-care (01) ==
LOC: HO.HOS 11:48
PROVIDERS: PCP Internal Medicine; Visit Provider Physician Assistant
DX: S82.002A Unspecified fracture of left patella, initial encounter for closed fracture (principal)
CPT/HCPCS: 99213

== ENCOUNTER → 2025-05-21 11:50 | Outpatient (BNV) | payer OTHER, SELFPAY | PROVIDERS: Visit Provider Radiology Diagnostic Radiology | DX: M22.42 Chondromalacia patellae, left knee (principal) | CPT/HCPCS: 73560 ==

== ENCOUNTER 2025-06-04 13:53 | Outpatient (RCR) | payer OTHER, BC, SELFPAY ==
--- NOTE | 2025-04-13 16:05 | MHC.PT.EP ---
[facility] [place] Office [place] Office [place] Office [address] Andree Harkins [address] [phone] F: [phone] F: [phone] F: [phone] F: [phone] Physical Therapy Plan of Care Date of Evaluation: 04/13/25 Date of Surgery: Diagnosis: closed fracture of left patella (RL) Assessment: pt is a 39 y/o female presenting to physical therapy w/ referring diagnosis of closed fracture of left patella. Impairments include pain, decreased range of motion, decreased strength, impaired functional mobility, impaired postural awareness, and altered ambulation mechanics. pt is a good candidate for skilled PT due to age, potential remediation of impairments, typical disease/condition progression and prognosis, comorbidities, and motivation. pt would benefit from skilled PT intervention to provide a tailored strengthening and stretching exercise program, functional training, gait training, postural re-training, neuromuscular re-education, modalities as needed for pain, equipment safety demonstration. Frequency and Duration: The patient will be seen 2x/wk for 8 wks Short Term Goals: pt will be I w/ HEP to promote self-management of condition. pt will improve L knee flexion to at least 100* to promote ease in tolerance for seated position. Circuit Breaker Mechanic Goals: pt will ascend/descend 12 stairs w/ railing access w/ reciprocal pattern to promote ease in accessing basement for laundry. pt will report a statistically significant improvement in self-reported outcome measure, LEFI, to promote return to PLOF. Treatment Plan: Modalities to reduce pain, spasms and effusion. Manual therapy to restore motion and function. Therapeutic exercise to improve strength and flexibility. Neuromuscular re-education for posture and balance. Therapeutic activities to return to functional activities of daily living. Electronically signed by: Franca Ewing PT, DPT Please sign and return to therapist. Thank you for your referral.
--- NOTE | 2025-07-06 14:28 | MHC.PT.DC ---
[facility] [place] Office [place] Office [place] Office [address] Andree Harkins 140 [facility] [phone] F: [phone] F: [phone] F: [phone] F: [phone] Physical Therapy Discharge Report Diagnosis: closed fracture of left patella (RL) Date of Surgery: Date of Evaluation: 04/13/25 Date of Discharge: 07/06/25 Treatments to Date: 16 Cancellations to Date: 1 No Shows to Date: 0 Discharge Status: Improved Function Independent with HEP Discharge Summary: The patient overall has made significant improvements regarding her knee rehabilitation. She has improved with her range, strength, and return to prior level of function. She has returned to the gym and is able to perform a lower body strengthening program with minimal pain or difficulty. She does continue to have some pain with descending stairs and deep squats. We did review some strategies to help with this. At this time, she is discharged from this physical therapy plan of care with the recommendation to continue with her home exercise program. Electronically signed by: Franca Ewing PT, DPT Please sign and return to therapist. Thank you for your referral.
== END 2025-07-06 14:29 | disposition home or self-care (01) ==
LOC: HO.PT 13:53
PROVIDERS: PCP Internal Medicine; Visit Provider Physician Assistant
DX: S82.002D Unspecified fracture of left patella, subsequent encounter for closed fracture with routine healing (principal)
CPT/HCPCS: 97110; 97112; 97116; 97161; 97164; 97530